=== PATIENT | male | born 1980 | race Two or more races ===

== ENCOUNTER 2017-01-07 04:27 | Emergency (ER) | payer SELFPAY ==
[2017-01-07] MEDS ORDERED: IBUPROFEN 600 MG TABLET ONE (04:35)
== END 2017-01-07 05:29 | disposition home or self-care (01) ==
LOC: ED 04:27
DX: J11.1 Influenza due to unidentified influenza virus with other respiratory manifestations (principal)
CPT/HCPCS: 99283; 99282; A9270